=== PATIENT | male | born 1980 | race Caucasian/White ===

== ENCOUNTER 2020-02-05 17:34 | Emergency (ER) | payer OTHER ==
[~2020-02-05] VITALS: Ht 188 cm; Wt 117.9 kg
[2020-02-05] MEDS ORDERED: ACETIC ACID15 ML OTIC (18:09)
[2020-02-05] MEDS ORDERED: AMOXICILLIN 50500 MG PO (18:09)
[2020-02-05 18:15] VITALS: BP 147/94
== END 2020-02-05 18:16 | disposition home or self-care (01) ==
LOC: M.ERS 17:34
DX: H66.91 Otitis media, unspecified, right ear (principal); H61.23 Impacted cerumen, bilateral